=== PATIENT | female | born 1985 | race American Indian/Alaskan Native ===

== ENCOUNTER 2020-07-31 15:18 | Emergency (ER) | payer SELFPAY ==
[2020-07-31] MEDS ORDERED: ASPIRIN 325 MG TAB PO ONE ×2 (15:28→22:05)
--- NOTE | 2020-07-31 15:54 | Event Note ---
ED Screening Note ED Screening Note: Patient presents for midsternal chest pain that began suddenly today She states it feels like a heaviness She has associated shortness of breath She states that she does have discomfort upon taking a deep breath She denies any fever, cough, nausea, vomiting, diarrhea, leg swelling She denies any recent travel, recent surgery, immobilization, hormone use No past medical history No allergies to medicine This initial assessment/diagnostic orders/clinical plan/treatment(s) is/are subject to change based on patients health status, clinical progression and re- assessment by fellow clinical providers in the ED. Further treatment and workup at subsequent clinical providers discretion. Patient/guardian urged not to elope from the ED as their condition may be serious if not clinically assessed and managed. Initial orders include: Labs, EKG, chest x-ray
--- NOTE | 2020-07-31 16:28 | XRay Report ---
CHEST 2 VIEWS INDICATION / CLINICAL INFORMATION: CP WITH SOB. COMPARISON: None available. FINDINGS: SUPPORT DEVICES: None. HEART / MEDIASTINUM: No significant abnormality. LUNGS / PLEURA: No significant pulmonary or pleural abnormality. No pneumothorax. ADDITIONAL FINDINGS: No significant additional findings. IMPRESSION: 1. No acute findings. Signer Name: Alfonzo Ellis MD Signed: 07/31/2020 4:24 PM Workstation Name: [id number]
[2020-07-31 16:32] LABS: Basophils # (Auto) 0.1 K/mm3 (0.0-0.1); Basophils % (Auto) 1.3 % (0.0-1.8); Eosinophils # (Auto) 0.1 K/mm3 (0.0-0.4); Eosinophils % (Auto) 2.6 % (0.0-4.3); Hematocrit 38.7 % (30.3-42.9); Lymphocytes # (Auto) 2.4 K/mm3 (1.2-5.4); Lymphocytes % (Auto) 47.4 % (13.4-35.0); Mean Corpuscular HGB Conc 34 % (30-34); Mean Corpuscular Volume 89 fl (79-97); Monocytes # (Auto) 0.6 K/mm3 (0.0-0.8); Monocytes % (Auto) 11.4 % (0.0-7.3); Platelet Count 280 K/mm3 (140-440); Red Blood Count 4.35 M/mm3 (3.65-5.03); Red Cell Distribution Width 13.1 % (13.2-15.2)
[2020-07-31 16:36] LABS: Alanine Aminotransferase 13 units/L (7-56); Albumin 3.9 g/dL (3.9-5); Blood Urea Nitrogen 14 mg/dL (7-17); Calcium 9.3 mg/dL (8.4-10.2); Hemolysis Index 6
[2020-07-31 16:37] LABS: INR 0.94 (0.87-1.13)
[2020-07-31 16:38] LABS: Partial Thromboplastin Time 26.5 Sec. (24.2-36.6)
[2020-07-31 16:43] LABS: BUN/Creatinine Ratio 23
--- NOTE | 2020-07-31 21:33 | Emergency Department Report ---
ED Chest Pain HPI - General Chief Complaint: Chest Pain Stated Complaint: CHEST PAIN/SOB Time Seen by Provider: 07/31/20 15:52 Source: patient Mode of arrival: Ambulatory Limitations: No Limitations - History of Present Illness Initial Comments: Chief complaint: Chest pain HPI this is a 34-year-old female without significant past medical history who pr esents with chest pain which began suddenly today. Chest pain felt like heaviness tightness symptoms lasted for an hour and a half. chest pain subsided spontaneously. She also has shortness of breath. She has comfort upon taking a deep breath. She denies fever cough nausea vomiting diarrhea or leg swelling. She denies recent travel surgery or oral contraceptive use. No family history of cardiac disease. Mother has a history of hypertension. MD Complaint: chest pain -: Sudden, This afternoon Onset: during rest Pain Location: substernal Pain Radiation: none Severity: severe Severity scale (0 -10): 7 Quality: heaviness Consistency: now resolved Improves With: nothing Worsens With: nothing re: dyspnea - Related Data Allergies Allergy/AdvReac Type Severity Reaction Status Date / Time No Known Allergies Allergy Unverified 07/31/20 15:24 Heart Score - HEART Score History: Slightly suspicious EKG: Normal Age: < 45 Risk factors: No known risk factors Troponin: < normal limit HEART Score: 0 ED Review of Systems ROS: Stated complaint: CHEST PAIN/SOB Other details as noted in HPI Comment: All other systems reviewed and negative Constitutional: denies: fever, malaise Respiratory: shortness of breath. denies: cough Cardiovascular: chest pain Gastrointestinal: denies: abdominal pain, nausea, vomiting Neurological: denies: headache ED Past Medical Hx - Past Medical History Previous Medical History?: No - Surgical History Past Surgical History?: Yes Additional Surgical History: TUBAL/ C SECTION - Family History Family history: hypertension - Social History Smoking Status: Never Smoker Substance Use Type: None ED Physical Exam - General Limitations: No Limitations General appearance: alert, in no apparent distress - Head Head exam: Present: atraumatic, normocephalic - Eye Eye exam: Present: normal appearance - ENT ENT exam: Present: mucous membranes moist - Neck Neck exam: Present: normal inspection, full ROM - Respiratory Respiratory exam: Present: normal lung sounds bilaterally. Absent: respiratory distress, wheezes, rales, rhonchi - Cardiovascular Cardiovascular Exam: Present: regular rate, normal rhythm, normal heart sounds. Absent: systolic murmur, diastolic murmur, rubs, gallop - GI/Abdominal GI/Abdominal exam: Present: soft, normal bowel sounds. Absent: distended, tenderness, guarding, rebound - Extremities Exam Extremities exam: Present: normal inspection - Neurological Exam Neurological exam: Present: alert, oriented X3 - Psychiatric Psychiatric exam: Present: normal affect, normal mood - Skin Skin exam: Present: warm, dry, intact, normal color. Absent: rash ED Course Vital Signs 07/31/20 07/31/20 07/31/20 15:27 20:55 20:56 Temperature 98.2 F 98.4 F Pulse Rate 84 65 72 Respiratory 20 15 14 Rate Blood Pressure 127/76 114/77 Blood Pressure 114/77 [Right] O2 Sat by Pulse 100 100 99 Oximetry 07/31/20 07/31/20 07/31/20 21:00 21:46 22:00 Temperature Pulse Rate 72 76 75 Respiratory 14 12 Rate Blood Pressure 114/77 118/75 115/77 Blood Pressure [Right] O2 Sat by Pulse 100 100 100 Oximetry 07/31/20 07/31/20 22:16 22:30 Temperature Pulse Rate 74 70 Respiratory 17 19 Rate Blood Pressure 118/75 134/77 Blood Pressure [Right] O2 Sat by Pulse 100 100 Oximetry ED Medical Decision Making - Lab Data Result diagrams: 07/31/20 15:49 07/31/20 15:49 Laboratory Results - last 24 hr 07/31/20 07/31/20 07/31/20 15:49 15:49 16:07 WBC 5.1 RBC 4.35 Hgb 13.0 Hct 38.7 MCV 89 MCH 30 MCHC 34 RDW 13.1 L Plt Count 280 Lymph % (Auto) 47.4 H [place] % (Auto) 11.4 H Eos % (Auto) 2.6 Baso % (Auto) 1.3 Lymph # (Auto) 2.4 [place] # (Auto) 0.6 Eos # (Auto) 0.1 Baso # (Auto) 0.1 Seg Neutrophils % 37.3 L Seg Neutrophils # 1.9 PT 12.5 INR 0.94 APTT 26.5 D-Dimer 541.77 H Sodium 137 Potassium 3.6 Chloride 103.1 Carbon Dioxide 24 Anion Gap 14 BUN 14 Creatinine 0.6 Estimated GFR > 60 BUN/Creatinine Ratio 23 Glucose 85 Calcium 9.3 Total Bilirubin 0.30 AST 17 ALT 13 Alkaline Phosphatase 62 Troponin T Total Protein 7.0 Albumin 3.9 Albumin/Globulin Ratio 1.3 HCG, Qual 07/31/20 07/31/20 16:07 18:10 WBC RBC Hgb Hct MCV MCH MCHC RDW Plt Count Lymph % (Auto) [place] % (Auto) Eos % (Auto) Baso % (Auto) Lymph # (Auto) [place] # (Auto) Eos # (Auto) Baso # (Auto) Seg Neutrophils % Seg Neutrophils # PT INR APTT D-Dimer Sodium Potassium Chloride Carbon Dioxide Anion Gap BUN Creatinine Estimated GFR BUN/Creatinine Ratio Glucose Calcium Total Bilirubin AST ALT Alkaline Phosphatase Troponin T < 0.010 Total Protein Albumin Albumin/Globulin Ratio HCG, Qual Negative - EKG Data EKG shows normal: sinus rhythm, axis, intervals, ST-T waves Rate: normal - EKG Data 07/31/20 21:33 EKG obtained 1530 EKG interpreted by me Normal sinus rhythm rate 70 bpm normal axis normal intervals no ST-T sign ischemia poor R wave progression in the anterior leads - Radiology Data Radiology results: report reviewed Chest 2 views: No acute findings according to radiology impression CT chest angiogram with contrast: No CT evidence for pulmonary embolism, no acute findings according to radiology impression - Medical Decision Making Chest pain: Atypical for ACS, no evidence of pulmonary embolism. Differential diagnosis includes GERD chest wall pain. Due to the noncardiac nature I do not feel that patient requires cardiology evaluation. I do feel that she will need outpatient follow-up with her primary care physician. She is encouraged to use an acids or ibuprofen if the symptoms return. She does not have any cardiovascular risk factors. Patient is discharged home with referral to outpatient medicine physician. Her last physical was in 2019. Critical care attestation.: If time is entered above; I have spent that time in minutes in the direct care of this critically ill patient, excluding procedure time. ED Disposition Clinical Impression: Chest pain, GERD (gastroesophageal reflux disease), Chest wall pain Disposition: -01 TO HOME OR SELFCARE Is pt being admited?: No Does the pt Need Aspirin: No Condition: Stable Instructions: Nonspecific Chest Pain, Adult Referrals: CHETNA CHERRY MD [Staff Physician] - 3-5 Days Forms: Work/School Release Form(ED)
--- NOTE | 2020-07-31 22:22 | Cat Scan Report ---
CTA CHEST WITH CONTRAST INDICATION / CLINICAL INFORMATION: CP, SOB, elevated d-dimer. TECHNIQUE: Axial CT images were obtained through the chest after injection of IV contrast. 3 plane MIP and/or 3D reconstructions were produced. All CT scans at this location are performed using CT dose reduction f or ALARA by means of automated exposure control. COMPARISON: Chest radiograph dated 07/31/2020. FINDINGS: PULMONARY ARTERIES: No pulmonary emboli. THORACIC AORTA: No significant abnormality. HEART: No significant abnormality. CORONARY ARTERIES: No significant calcification. MEDIASTINUM / BOWEN: No significant abnormality. PLEURA: No pleural effusion. No pneumothorax. LUNGS: No acute air space or interstitial disease. ADDITIONAL FINDINGS: None. UPPER ABDOMEN: No acute findings. SKELETAL STRUCTURES: No significant osseous abnormality. IMPRESSION: 1. No CT evidence for pulmonary embolism. 2. No acute findings. Signer Name: Robe Hart MD Signed: 07/31/2020 10:18 PM Workstation Name: [id number]
[2020-07-31 23:07] VITALS: BP 116/80
--- NOTE | 2020-08-04 10:14 | Electrocardiograph Report ---
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
== END 2020-07-31 23:05 | disposition home or self-care (01) ==
LOC: ED 15:18
DX: K21.9 Gastro-esophageal reflux disease without esophagitis (principal); R07.89 Other chest pain; Z98.51 Tubal ligation status
CPT/HCPCS: 36415; 71046; 71275; 80053; 84484; 84703; 85025; 85379; 85610; 85730; 93005; 99284; Q9967

== ENCOUNTER 2020-09-28 08:27 | Emergency (ER) | payer SELFPAY ==
[2020-09-28 10:14] LABS: Bacteria,Urine 1+ /HPF (Negative); Bilirubin,Urine NEG (Negative); Blood,Urine MOD (Negative); Color,Urine Yellow (Yellow); HCG Qualitative,Urine Negative (Negative); Mucus,Urine 1+ /HPF; Urobilinogen,Urine < 2.0 mg/dL (<2.0)
[2020-09-28 10:15] LABS: WBC,Urine > 182.0 /HPF (0.0-6.0)
[2020-09-28 10:18] VITALS: BP 113/84
--- NOTE | 2020-09-28 10:19 | Emergency Department Report ---
ED General Adult HPI - General Chief complaint: Urogenital-Female Stated complaint: PAIN WITH URINATING/FREQUENT URINE Time Seen by Provider: 09/28/20 08:51 Source: patient Mode of arrival: Ambulatory Limitations: No Limitations - History of Present Illness Initial comments: 35-year-old -[place] female patient presents with complaints of painful urination and urinary frequency x2 days. Symptoms worsening today per patient. She denies any dyspareunia, vaginal discharge, or vaginal bleeding or hematuria. No other prior medical history per patient. Patient also denies fever/chills/sweats. She rates her pain as a 10/10 in severity states it only occurs with urination. -: Sudden - Related Data Previous Rx's Medication Instructions Recorded Last Taken Type Ciprofloxacin HCl 500 mg PO BID 5 Days #10 tablet 09/28/20 Unknown Rx Allergies Allergy/AdvReac Type Severity Reaction Status Date / Time No Known Allergies Allergy Unverified 07/31/20 15:24 ED Review of Systems ROS: Stated complaint: PAIN WITH URINATING/FREQUENT URINE Other details as noted in HPI Constitutional: denies: chills, fever, malaise Respiratory: denies: shortness of breath Cardiovascular: denies: chest pain Gastrointestinal: denies: abdominal pain, nausea, vomiting Genitourinary: urgency, dysuria, frequency. denies: hematuria, discharge, abnormal menses, dyspareunia Musculoskeletal: denies: back pain Hematological/Lymphatic: denies: swollen glands ED Past Medical Hx - Past Medical History Previous Medical History?: No - Surgical History Past Surgical History?: No Additional Surgical History: TUBAL/ C SECTION - Social History Smoking Status: Never Smoker Substance Use Type: None - Medications Home Medications: Home Medications Medication Instructions Recorded Confirmed Last Taken Type Ciprofloxacin HCl 500 mg PO BID 5 Days #10 tablet 09/28/20 Unknown Rx ED Physical Exam - General Limitations: No Limitations General appearance: alert, in no apparent distress - Head Head exam: Present: atraumatic, normocephalic - Eye Eye exam: Present: normal appearance - Respiratory Respiratory exam: Absent: respiratory distress - Cardiovascular Cardiovascular Exam: Present: regular rate - GI/Abdominal GI/Abdominal exam: Present: soft. Absent: tenderness - Neurological Exam Neurological exam: Present: alert, oriented X3 - Psychiatric Psychiatric exam: Present: normal affect, normal mood - Skin Skin exam: Present: warm, dry, intact, normal color. Absent: rash ED Course Vital Signs 09/28/20 09:00 Temperature 98.7 F Pulse Rate 80 Respiratory 16 Rate Blood Pressure 113/84 O2 Sat by Pulse 100 Oximetry ED Medical Decision Making - Medical Decision Making 35-year-old -[place] female patient presents with complaints of painful urination and urinary frequency x2 days. Symptoms worsening today per patient. She denies any dyspareunia, vaginal discharge, or vaginal bleeding or hematuria. No other prior medical history per patient. Patient also denies fever/chills/sweats. She rates her pain as a 10/10 in severity states it only occurs with urination. UA shows >182 WBCs. Will treat for UTI with Cipro. Recommend follow-up with PCP in 3 to 5 days. Patient is well-appearing, her vitals within normal limits, and she is stable for discharge home. Discussed signs and symptoms that should prompt immediate return to the emergency department in detail with patient who verbalized understanding. Critical care attestation.: If time is entered above; I have spent that time in minutes in the direct care of this critically ill patient, excluding procedure time. ED Disposition Clinical Impression: UTI (urinary tract infection) Disposition: DC-01 TO HOME OR SELFCARE Is pt being admited?: No Condition: Stable Instructions: Urinary Tract Infection, Adult Prescriptions: Ciprofloxacin HCl 500 mg PO BID 5 Days #10 tablet Referrals: PRIMARY CARE [Primary Care Provider] - 3-5 Days Forms: Work/School Release Form(ED)
[2020-09-28] MEDS ORDERED: IBUPROFEN 800 MG TAB PO STA (10:23)
[2020-09-28] MEDS ORDERED: ACETAMINOPHEN 500 MG TAB PO STA (10:23)
== END 2020-09-28 10:28 | disposition home or self-care (01) ==
LOC: ED 08:27
DX: N39.0 Urinary tract infection, site not specified (principal); Z79.899 Other long term (current) drug therapy; Z98.890 Other specified postprocedural states
CPT/HCPCS: 81001; 81025; 87086

== ENCOUNTER 2020-12-04 08:44 | Emergency (ER) | payer SELFPAY ==
[2020-12-04 09:44] LABS: Bacteria,Urine 1+ /HPF (Negative); Bilirubin,Urine NEG (Negative); Blood,Urine SM (Negative); Color,Urine Yellow (Yellow); Mucus,Urine FEW /HPF; Protein,Urine <15 mg/dL mg/dL (Negative)
[2020-12-04] MEDS ORDERED: LIDOCAINE-MPF (1%) 10 MG/1 ML VIAL 5 ML INFILTRATI ONE (10:09)
[2020-12-04 10:29] VITALS: BP 120/84
--- NOTE | 2020-12-04 10:33 | Emergency Department Report ---
ED Female HPI - General Chief complaint: Urogenital-Female Stated complaint: VAGINAL DISCHARGE Time Seen by Provider: 12/04/20 10:08 Source: patient Mode of arrival: Ambulatory Limitations: No Limitations - History of Present Illness Initial comments: 35-year-old -[place] female presents to the emergency room complaining of vaginal discharge off and on for a week. Patient denies any odor to the discharge. Patient does report unprotected intercourse with her . She denies any urinary frequency or urgency. She currently takes no medications has no known drug allergies and denies any past medical history. MD Complaint: vaginal discharge Onset/Timin -: week(s) Location: perineum Severity: moderate Consistency: constant Improves with: none Worsens with: none Are you Now?: No - Related Data Previous Rx's Medication Instructions Recorded Last Taken Type Ciprofloxacin HCl 500 mg PO BID 5 Days #10 tablet 09/28/20 Unknown Rx Doxycycline Hyclate [Doxycycline 100 mg PO Q12HR 10 Days #20 tab 12/04/20 Unknown Rx Hyclate TAB] metroNIDAZOLE [Flagyl] 500 mg PO Q8HR 7 Days #21 tablet 12/04/20 Unknown Rx Allergies Allergy/AdvReac Type Severity Reaction Status Date / Time No Known Allergies Allergy Unverified 07/31/20 15:24 ED Review of Systems ROS: Stated complaint: VAGINAL DISCHARGE Other details as noted in HPI Comment: All other systems reviewed and negative ED Past Medical Hx - Past Medical History Previous Medical History?: No - Surgical History Past Surgical History?: Yes Additional Surgical History: TUBAL/ C SECTION - Social History Smoking Status: Never Smoker Substance Use Type: None - Medications Home Medications: Home Medications Medication Instructions Recorded Confirmed Last Taken Type Ciprofloxacin HCl 500 mg PO BID 5 Days #10 tablet 09/28/20 Unknown Rx Doxycycline Hyclate [Doxycycline 100 mg PO Q12HR 10 Days #20 tab 12/04/20 Unknown Rx Hyclate TAB] metroNIDAZOLE [Flagyl] 500 mg PO Q8HR 7 Days #21 tablet 12/04/20 Unknown Rx ED Physical Exam - General Limitations: No Limitations General appearance: alert, in no apparent distress - Head Head exam: Present: atraumatic, normocephalic - Eye Eye exam: Present: normal appearance - ENT ENT exam: Present: mucous membranes moist - Neck Neck exam: Present: normal inspection - Respiratory Respiratory exam: Present: normal lung sounds bilaterally. Absent: respiratory distress, accessory muscle use - Cardiovascular Cardiovascular Exam: Present: regular rate - GI/Abdominal GI/Abdominal exam: Present: soft. Absent: distended, tenderness, guarding - Extremities Exam Extremities exam: Present: normal inspection, full ROM - Back Exam Back exam: Present: normal inspection, full ROM - Neurological Exam Neurological exam: Present: alert, oriented X3, normal gait - Psychiatric Psychiatric exam: Present: normal affect, normal mood - Skin Skin exam: Present: warm, dry, intact, normal color. Absent: rash ED Medical Decision Making - Medical Decision Making 35-year-old -[place] female presents to the emergency room complaining of vaginal discharge off and on for a week. Patient denies any odor to the discharge. Patient does report unprotected intercourse with her . She denies any urinary frequency or urgency. She currently takes no medications has no known drug allergies and denies any past medical history. Patient will be given injection of Rocephin 1 g IM. Discharged on doxycycline and Flagyl. Patient is to follow-up with the health department for full STD evaluation and treatment. Critical care attestation.: If time is entered above; I have spent that time in minutes in the direct care of this critically ill patient, excluding procedure time. ED Disposition Clinical Impression: Concern about STD in female without diagnosis, Vaginitis Disposition: TO HOME OR SELFCARE Is pt being admited?: No Does the pt Need Aspirin: No Condition: Stable Instructions: Vaginitis, [id number] Additional Instructions: You are being treated for gonorrhea and chlamydia and bacterial vaginosis as well as Trichomonas. I do recommend for you to follow-up at the health department for full STD of evaluation. You can also follow-up with the [facility]. Refrain from intercourse for the next 2 weeks inform your partner that they need to be checked as well. Prescriptions: Doxycycline Hyclate [Doxycycline Hyclate TAB] 100 mg PO Q12HR 10 Days #20 tab metroNIDAZOLE [Flagyl] 500 mg PO Q8HR 7 Days #21 tablet Referrals: [facility] [Outside] - 3-5 Days [facility] [Outside] - 3-5 Days [facility] [Provider Group] - 3-5 Days Forms: Work/School Release Form(ED) Time of Disposition: 10:34
== END 2020-12-04 11:39 | disposition home or self-care (01) ==
LOC: ED 08:44
DX: N76.0 Acute vaginitis (principal); Z71.1 Person with feared health complaint in whom no diagnosis is made; Z79.899 Other long term (current) drug therapy; Z98.890 Other specified postprocedural states; Z98.51 Tubal ligation status
CPT/HCPCS: 81001; 96372; 99283; J0696

== ENCOUNTER 2020-12-16 17:03 | Emergency (ER) | payer OTHER, SELFPAY ==
[2020-12-16 22:42] VITALS: BP 137/87
== END 2020-12-16 22:38 | disposition home or self-care (01) ==
LOC: ED 17:03
DX: J20.9 Acute bronchitis, unspecified (principal); J06.9 Acute upper respiratory infection, unspecified; Z20.822 Contact with and (suspected) exposure to COVID-19; Z79.899 Other long term (current) drug therapy; Z98.890 Other specified postprocedural states; Z98.51 Tubal ligation status
CPT/HCPCS: 71045